=== PATIENT | female | born 1950 | race African-American/Black ===

== ENCOUNTER 2023-05-13 14:22 | Emergency (ER) | payer OTHER ==
[2023-05-13 14:38] VITALS: BMI 25.0
[2023-05-13] MEDS ORDERED: SODIUM CHLORIDE 1,000 ML IV STA (15:00)
[2023-05-13] MEDS ORDERED: ACETAMINOPHEN 1000 MG/100 ML BAG IVPB ONE (15:28)
[2023-05-13 15:49] LABS: BASO % 0.5 % (0-2.0); HEMATOCRIT 35.9 % (32.4-45.2); HEMOGLOBIN 11.9 GM/dL (10.7-15.3); LYMPH % 5.7 % (8-40); MCHC 33.1 g/dl (32.0-36.0); MEAN CELL VOLUME 87.8 fl (80-96); MEAN PLT VOLUME 9.4 fl (7.5-11.1); MONO % 1.8 % (3.8-10.2); PLATELET COUNT 311 10^3/uL (134-434); RBC 4.09 M/mm3 (3.60-5.2); RDW 15.1 % (11.6-15.6); WHITE BLOOD COUNT 10.1 K/mm3 (4.0-10.0)
[2023-05-13 16:04] LABS: POTASSIUM 4.3 mmol/L (3.5-5.1)
[2023-05-13 16:07] LABS: CALCIUM 9.4 mg/dL (8.5-10.1)
[2023-05-13 16:08] LABS: ALBUMIN 3.8 g/dl (3.4-5.0); BLOOD UREA NITROGEN 13.2 mg/dL (7-18)
[2023-05-13 16:11] LABS: CREATININE 0.9 mg/dL (0.55-1.3)
[2023-05-13 16:12] LABS: BILIRUBIN,TOTAL 0.4 mg/dL (0.2-1); TOT PROT 7.8 g/dl (6.4-8.2)
[2023-05-13 16:26] LABS: ANISOCYTOSIS 1+; MACROCYTOSIS 0
[2023-05-13] MEDS ORDERED: ASPIRIN 325 MG ENTERIC COATED TABLET (FP) PO ONE (16:31)
[2023-05-13] MEDS ORDERED: ASPIRIN 325 MG ENTERIC COATED TABLET (FP) ONE (16:33)
[2023-05-13] MEDS ORDERED: ONDANSETRON 4 MG/2 ML VIAL IVPUSH ONE (16:39)
[2023-05-13] MEDS ORDERED: ONDANSETRON 4 MG/2 ML VIAL ONE (16:40)
[2023-05-13 17:48] LABS: EPI CELLS 19 /uL (0-25.1); HYALINE CASTS 0 /uL (0-3.1); PH,URINE 5.5 (5.0-8.0); URINE APPEARANCE CLOUDY; URINE BACTERIA >9,000 /uL (0-1359); URINE BILIRUBIN NEGATIVE (NEGATIVE); URINE COLOR YELLOW; URINE GLUCOSE (UA) NEGATIVE (NEGATIVE); URINE KETONE TRACE (NEGATIVE); URINE LEUK ESTERASE 2+ (NEGATIVE); URINE NITRITE NEGATIVE (NEGATIVE); URINE PROTEIN TRACE (NEGATIVE); URINE RBC 33 /uL (0-23.9); URINE UROBILINOGEN 0.2 mg/dL (0.2-1.0); URINE WBC 511 /uL (0-25.8)
[2023-05-13] MEDS ORDERED: HEPARIN NA (PORCINE) 5,000 UNITS/ML 1ML VIAL IVPUSH ONE (18:24)
[2023-05-13] MEDS ORDERED: morphine CARPU-JECT 4 MG/1 ML DISP.SYRIN IVPUSH ONE (18:25)
[2023-05-13] MEDS ORDERED: HEPARIN INFUSION - 25,000 UNITS/500 ML INFUS.BAG IVPB SCH (18:30)
[2023-05-13] MEDS ORDERED: HEPARIN NA (PORCINE) 5,000 UNITS/ML 1ML VIAL ONE (18:31)
[2023-05-13] MEDS ORDERED: morphine SULFATE 4 MG/ML VIAL ONE (18:31)
[2023-05-13] MEDS ORDERED: SULFAMETHOXAZOLE 80 MG/TRIMETHOPRIM 16 MG/ML VIAL IVPB SCH (18:41)
[2023-05-13] MEDS ORDERED: HEPARIN INFUSION - 25,000 UNITS/500 ML INFUS.BAG IVPB ONE (18:47)
[2023-05-13] MEDS ORDERED: SULFAMETHOXAZOLE/TRIMETHOPRIM 320 MG in DEXTROSE 5%-WATER - 250 ML IVPB SCH (19:00)
[2023-05-13 19:47] VITALS: RESP 18
[2023-05-13 20:23] VITALS: BP 150/109; PULSE 80; TEMP 98.6
== END 2023-05-13 20:25 | disposition short-term general hospital (02) ==
LOC: JER 14:22
PROC: 3E033NZ Introduction of Analgesics, Hypnotics, Sedatives into Peripheral Vein, Percutaneous Approach (ICD-10-PCS; principal; 2023-05-13)
PROC: 3E033GC Introduction of Other Therapeutic Substance into Peripheral Vein, Percutaneous Approach (ICD-10-PCS; 2023-05-13)
PROC: 3E033GC Introduction of Other Therapeutic Substance into Peripheral Vein, Percutaneous Approach (ICD-10-PCS; 2023-05-13)
PROC: 3E033GC Introduction of Other Therapeutic Substance into Peripheral Vein, Percutaneous Approach (ICD-10-PCS; 2023-05-13)
PROC: 3E0337Z Introduction of Electrolytic and Water Balance Substance into Peripheral Vein, Percutaneous Approach (ICD-10-PCS; 2023-05-13)
DX: R06.02 Shortness of breath (principal); R53.1 Weakness; R11.10 Vomiting, unspecified; R07.9 Chest pain, unspecified; R68.2 Dry mouth, unspecified; R00.9 Unspecified abnormalities of heart beat; R01.1 Cardiac murmur, unspecified; R77.8 Other specified abnormalities of plasma proteins; R63.0 Anorexia; Z20.822 Contact with and (suspected) exposure to COVID-19
CPT/HCPCS: 0241U-QW; 36415; 70450-TC; 71045-TC-FY; 80053; 80061; 81003; 82962; 83605; 84484; 85025; 87086; 87186; 93005; 93010; 99285-25; J1644